=== PATIENT | female | born 1990 | race Two or more races ===

== ENCOUNTER 2024-11-23 21:26 | Emergency (ER) | payer MEDICAID, SELFPAY ==
[2024-11-23 21:29] VITALS: BMI 37.1
[2024-11-23 21:37] VITALS: BP 111/69; PULSE 93; RESP 18; TEMP 36.6; O2SAT 98
--- NOTE | 2024-11-23 22:16 | XR_ITS ---
Examination: Complete OB ultrasound, less than 14 weeks, transabdominal Date and time of exam: May 26, 2025 1019 hours INDICATIONS: Early by history with fall today Technique: Obstetrical ultrasound images less than 14 weeks performed via transabdominal imaging Findings: A normal shaped single intrauterine gestation is present in the uterus. pole 2.5 cm corresponds to 9 weeks 2 days gestational age Cardiac motion 171 BPM Ultrasonographic survey of visible and placental structures unremarkable. Amniotic fluid volume appears appropriate for this estimated gestational age. Right ovary 3.0 cm arterial flow Left ovary 3.1 cm arterial flow IMPRESSION: Viable intrauterine gestation 9 weeks 2 days No subchorionic hemorrhage.
--- NOTE | 2024-11-23 22:18 | EDNOTE_ITS ---
ED General RME/HPI General Chief complaint: Fall Stated complaint: 9 wks preg fall today cramping Time Seen by Provider: 11/23/24 21:39 Arrival date/time: 11/23/24 21:26 34-year-old female presents to the ED after tripping and falling down 2 steps. She landed on her knees and the palms of her hands. She denies any pain to her knees or hands. She is concerned because she started cramping and is currently 9 weeks . She has not seen an OB or had an ultrasound yet. She denies any vaginal bleeding. She is also requesting to have a sebaceous cyst removed from the right side of her neck that has been present for 2 years. She has squeezed it multiple times and white foul-smelling discharge is expelled. She has had previous sebaceous cysts that have abscess and is wanting to have it removed. She denies any fever or chills, nausea or vomiting, diarrhea. Limitations: no limitations Related Data Home Medications ?Medication ?Instructions ?Recorded ?Confirmed prenat.vits,morelia,[id number] 1 tab PO 5 TIMES DAILY 01/02/24 01/02/24 Allergies Allergy/AdvReac Type Severity Reaction Status Date / Time No Known Allergies Allergy Verified 05/22/24 17:27 Review of Systems Review of Systems Systems Reviewed: All systems reviewed, normal except as documented Past Medical History Past Medical History CARDIAC: Negative Cardiac Disorders or Congestive Heart Failure RESPIRATORY: Negative Chronic Obstructive Pulmonary Disease (COPD) or Asthma GENITOURINARY: Negative Renal Disease ENDOCRINE: Negative Diabetes Mellitus Type 1 or Diabetes Mellitus Type 2 HEMATOLOGIC: Negative Sickle Cell Disease Surgical History SURGICAL: Positive Section Social History SMOKING STATUS: Never smoker ED Exam Narrative Physical exam: Alert and oriented 34-year-old female, no acute distress, nontoxic-appearing. Lungs are clear, regular rate and rhythm, moves all extremities well. No tenderness, swelling, ecchymosis or abrasions noted to the bilateral knees or palmar surfaces of her bilateral hands. No snuffbox tenderness bilaterally. No pain with axial thumb load bilaterally. Right neck reveals a soft tissue mass consistent with a sebaceous cyst. There is no erythema, warmth, or tenderness. Neck is supple, no adenopathy, normal range of motion. Abdomen is soft and nontender. General Limitations: Present no limitations General appearance: Present alert and in no apparent distress Course Course Course Narrative: Urinalysis reveals clear colorless urine with a specific gravity of 1.010 with negative nitrites, negative leukocyte Esterace, no bacteria. OB ultrasound less than 14 weeks reveals: A normal shaped single intrauterine gestation is present in the uterus. pole 2.5 cm corresponds to 9 weeks 2 d ays gestational age. Cardiac motion 171 BPM. Ultrasonographic survey of visible and placental structures unremarkable. Amniotic fluid volume appears appropriate for this estimated gestational age. Right ovary 3.0 cm arterial flow. Left ovary 3.1 cm arterial flow. Quality Measures none Orders Category Date Time Status US OB <= 14 weeks fetus Stat Exams 11/23/24 22:16 Completed Urinalysis Stat Lab 11/23/24 22:21 Completed Vital Signs Vital signs: Vital Signs Temperature 97.9 F 11/23/24 21:37 Pulse Rate 93 11/23/24 21:37 Respiratory Rate 18 11/23/24 21:37 Blood Pressure 111/69 11/23/24 21:37 Pulse Oximetry (%) 98 11/23/24 21:37 Oxygen Delivery Method Room Air 11/23/24 21:37 Discharge Plan Plan Patient Disposition: HOME (Self Care) Discharge Disposition comment: Stable and improved Prescriptions/Referrals Prescriptions/Med Rec: No Action Vitamin Tablet 1 tab PO 5 TIMES DAILY Referrals: Lyle Vázquez MD [Primary Care Provider] - In 1 week Problem List Clinical Impression: Fall (on) (from) other stairs and steps, initial encounter, Intrauterine , Sebaceous cyst Patient/Caregiver Discharge Instructions Education Materials: First Trimester, ED Fall with Uncertain Cause, ED Epidermoid Cyst, No Infection Additional Instructions: Follow-up with your traffic or system dispatcher AND primary care physician in 24 to 48 hours. Return to the ED for any new or worsening symptoms. Print Language: Lithuanian Stand Alone Forms: Goalbook Award Info., Patient Portal Info Letter PA/CONFIGURATION MANAGER Supervising Physician PA/DARREL Supervising Physician: Dr Krystyna STEVENSON Narrative [facility] hospital course (for use when minimal MDM required): 34-year-old female presents to the ED after tripping and falling down 2 steps. She landed on her knees and the palms of her hands. She denies any pain to her knees or hands. She is concerned because she started cramping and is currently 9 weeks . She has not seen an OB or had an ultrasound yet. She denies any vaginal bleeding. She is also requesting to have a sebaceous cyst removed from the right side of her neck that has been present for 2 years. She has squeezed it multiple times and white foul-smelling discharge is expelled. She has had previous sebaceous cysts that have abscess and is wanting to have it removed. She denies any fever or chills, nausea or vomiting, diarrhea. Alert and oriented 34-year-old female, no acute distress, nontoxic-appearing. Lungs are clear, regular rate and rhythm, moves all extremities well. No tenderness, swelling, ecchymosis or abrasions noted to the bilateral knees or palmar surfaces of her bilateral hands. No snuffbox tenderness bilaterally. No pain with axial thumb load bilaterally. Right neck reveals a soft tissue mass consistent with a sebaceous cyst. There is no erythema, warmth, or tenderness. Neck is supple, no adenopathy, normal range of motion. Abdomen is soft and nontender. Urinalysis reveals clear colorless urine with a specific gravity of 1.010 with negative nitrites, negative leukocyte Esterace, no bacteria. OB ultrasound less than 14 weeks reveals: A normal shaped single intrauterine gestation is present in the uterus. pole 2.5 cm corresponds to 9 weeks 2 days gestational age. Cardiac motion 171 BPM. Ultrasonographic survey of visible and placental structures unremarkable. Amniotic fluid volume appears appropriate for this estimated gestational age. Right ovary 3.0 cm arterial flow. Left ovary 3.1 cm arterial flow. Advised patient she will need to follow-up with her primary care physician for referral to a corporate real estate specialist for elective removal of the sebaceous cyst. Clinical Information Provided by: patient Medical Records reviewed [facility] Meds/Rx considered, not ordered None Labs/Rad/Tests considered, not ordered None Chronic Illness/Social Conditions which may negatively complicate care or outcome(s)-explain: None or not applicable EKG EKG not done Labs Labs: Interpreted by oh Lab(s) Interpretation(s): As noted above Imaging Imaging interpretation: none or see narrative above Imaging Interpretation(s): As noted above Medication Administration(s) none N/A Diagnosis Differential Diagnosis ED Complaint MDM: Fall, sebaceous cyst, pelvic cramping during .
[2024-11-23 23:26] LABS: Collection Type, Urine Clean Catch
[2024-11-23 23:36] LABS: Bilirubin,Urine Negative (Negative); Blood,Urine Negative (Negative); Clarity,Urine Clear (Clear/Hazy); Color,Urine Colorless (Lt Yel-Yel); Glucose, Urine Negative (Negative); Ketones,Urine Negative (Negative); Leukocyte Esterase,Urine Negative (Negative); Nitrite,Urine Negative (Negative); PH,Urine 6.5 (5.0-7.0); Protein,Urine Negative (Neg - Trace); RBC,Urine < 1 /hpf (0-3); Squamous Epithelial Cell,Urine 1 /hpf (0-5); Urobilinogen,Urine Negative mg/dL (0.0-1.0); WBC,Urine < 1 /hpf (0-5)
== END 2024-11-24 00:19 | disposition home or self-care (01) ==
PROVIDERS: Physician Assistant; Emergency Provider Emergency Medicine; PCP Family Medicine
DX: O99.711 Diseases of the skin and subcutaneous tissue complicating pregnancy, first trimester (principal); L72.3 Sebaceous cyst; W10.8XXA Fall (on) (from) other stairs and steps, initial encounter; Z3A.09 9 weeks gestation of pregnancy
CPT/HCPCS: 76801; 81001; 99284

== ENCOUNTER 2025-02-11 18:01 | Emergency (ER) | payer MEDICAID, SELFPAY ==
[2025-02-11 18:11] VITALS: BP 110/75; PULSE 92; RESP 18; TEMP 36.9; O2SAT 96
--- NOTE | 2025-02-11 18:55 | PD.EDSKIN ---
ED Skin Abcess FB-RME/HPI General Chief complaint: Ankle/Foot Injury Stated complaint: R) GREAT TOENAIL LIFTED FROM NAIL BED Time Seen by Provider: 02/11/25 18:39 Arrival date/time: 02/11/25 18:01 34F with no significant PMH presents to ED with R big toenail avulsion. Patient is also currently . Limitations: no limitations Related Data Home Medications ?Medication ?Instructions ?Recorded ?Confirmed prenat.vits,morelia,[id number] 1 tab PO 5 TIMES DAILY 01/02/24 01/02/24 Allergies Allergy/AdvReac Type Severity Reaction Status Date / Time No Known Allergies Allergy Verified 02/11/25 18:05 Review of Systems Review of Systems Systems Reviewed: All systems reviewed, normal except as documented Constitutional Constitutional: Reports system reviewed and no additional complaints, except as documented, Denies fever(s) and Denies headache(s) ENT Ears, Nose, Mouth, and Throat: Denies disequilibrium and Denies headache(s) Cardiovascular Cardiovascular: Reports system reviewed and no additional complaints, except as documented, Denies chest pain and Denies dyspnea Respiratory Respiratory: Reports system reviewed and no additional complaints, except as documented, Denies cough and Denies dyspnea Gastrointestinal Gastrointestinal: Reports system reviewed and no additional complaints, except as documented, Denies abdominal pain, Denies nausea and Denies vomiting Integumentary/Breasts Skin/Breast: Reports as per HPI and Reports skin pain Neurologic Neurologic: Reports system reviewed and no additional complaints, except as documented, Denies confusion, Denies disequilibrium and Denies headache(s) Psychiatric Psychiatric: Denies confusion Past Medical History Past Medical History CARDIAC: Negative Cardiac Disorders or Congestive Heart Failure RESPIRATORY: Negative Chronic Obstructive Pulmonary Disease (COPD) or Asthma GENITOURINARY: Negative Renal Disease ENDOCRINE: Negative Diabetes Mellitus Type 1 or Diabetes Mellitus Type 2 HEMATOLOGIC: Negative Sickle Cell Disease Surgical History SURGICAL: Positive Section Social History SMOKING STATUS: Never smoker ED Exam General Limitations: Present no limitations General appearance: Present alert and in no apparent distress Head Head exam: Present atraumatic Eye Eye exam: Present normal appearance, PERRL and EOMI ENT ENT exam: Present normal exam, normal oropharynx and mucous membranes moist Neck Neck exam: Present normal inspection, full ROM and trachea midline Chest Chest inspection: Present normal inspection and symmetric chest wall rise Respiratory Respiratory exam: Present normal lung sounds bilaterally Cardiovascular Cardiovascular exam: Present regular rate, normal rhythm and normal heart sounds Abdominal Exam Abdominal exam: Present soft and normal bowel sounds Extremities Exam Extremities exam: Present full ROM Expanded Lower Extremity Exam Foot/toe exam: Present full ROM and nail avulsion (R big toe partial) Back Exam Back exam: Present normal inspection and full ROM Neurological Exam Neurological exam: Present alert, oriented X3 and CN II-XII intact Psychiatric Psychiatric exam: Present normal affect and normal mood Skin Skin exam: Present warm, dry, intact and normal color Course Quality Measures none Orders Category Date Time Status Wound Care NOW Care 02/11/25 18:39 Active Vital Signs Vital signs: Vital Signs Temperature 98.5 F 02/11/25 18:11 Pulse Rate 92 02/11/25 18:11 Respiratory Rate 18 02/11/25 18:11 Blood Pressure 110/75 02/11/25 18:11 Pulse Oximetry (%) 96 02/11/25 18:11 Oxygen Delivery Method Room Air 02/11/25 18:11 O2 at 96% on RA and WNLs Skin / Abscess / Foreign Body MDM Narrative MDM Narrative:: 34F with no significant PMH presents to ED with R big toenail avulsion. Patient is also currently . Physical exam reveals partial R big toenail avulsion. Patient is afebrile, calm, and alert. Toenail trimmed and bandaged with michael tape. Patient data External records reviewed:: [facility] previous records Clinical information provided by:: patient Social determinants that could affect healthcare access:: none Patient has the following chronic illnesses:: none How is presenting disease/condition affected by chronic disease/condition?: no chronic disease Evaluation data The following diagnostics were reviewed and interpreted by me:: other (specify) (none) Lab and/or radiology exams considered but not ordered:: not ordered Interpretation Summary: n/a Medications / Prescriptions Medications or Prescriptions considered but not ordered:: not ordered Medication administrations:: n/a Consultations Consultation(s) initiated? (list below): No Diagnosis Skin/Abscess Differential Diagnosis: abscess of skin or subcutaneous tissue, viral exanthem, dermatophytosis, urticaria, herpes zoster, allergic reaction to drug, cellulitis, eczema, insect bites, impetigo, contact dermatitis and other (toenail avulsion) Most likely diagnosis given after review of the tests above:: toenail avulsion Admission Indicated Admission indicated?: not indicated Admission Request Was there a request for admission?: No Disposition Plan Disposition Plan: Discharge Discharge Attestation Discharge Attestation: The patient and all family members were given an opportunity to ask questions and understood the discharge instructions. Discharge instructions specifically effects, indications for sooner follow up or return to the emergency department, and the expected course of current diagnosis. Patient condition: Stable Discharge Plan Plan Patient Disposition: HOME (Self Care) Discharge Disposition comment: Stable Prescriptions/Referrals Prescriptions/Med Rec: No Action Vitamin Tablet 1 tab PO 5 TIMES DAILY Problem List Clinical Impression: Avulsion of toenail Patient/Caregiver Discharge Instructions Education Materials: ED Detached Fingernail or Toenail Additional Instructions: Please follow-up with PCP within 24-48 hours and return immediately if symptoms worsen. Print Language: Ecuadorean Stand Alone Forms: Patient Portal Info Letter MECCA/DARREL Supervising Physician MECCA/DARREL Supervising Physician: Dr. Carrington
== END 2025-02-11 19:00 | disposition home or self-care (01) ==
LOC: SERX 18:54
PROVIDERS: Emergency Provider Emergency Medicine; PCP Family Medicine
DX: O9A.219 Injury, poisoning and certain other consequences of external causes complicating pregnancy, unspecified trimester (principal); S91.209A Unspecified open wound of unspecified toe(s) with damage to nail, initial encounter; X58.XXXA Exposure to other specified factors, initial encounter
CPT/HCPCS: 99283

== ENCOUNTER 2025-05-25 22:43 | Observation (INO) | payer MEDICAID, SELFPAY ==
[2025-05-25 23:09] VITALS: BP 106/62; PULSE 97; RESP 17; RESP 97; TEMP 36.9
[2025-05-25 23:22] VITALS: BMI 43.7
[2025-05-25 23:26] LABS: ROM Kit Exp Date# 04/11/28; ROM Kit Lot # 58106258
[2025-05-25 23:27] LABS: ROM Swab Mixed By: PC; Rupture of Fetal Membranes Negative (Negative); Swb Mxed in Solvent 1 min? Yes
== END 2025-05-25 23:59 | disposition home or self-care (01) ==
PROVIDERS: Admitting Provider Obstetrics & Gynecology; PCP Family Medicine; Visit Provider Obstetrics & Gynecology
DX: O99.353 Diseases of the nervous system complicating pregnancy, third trimester (principal); G43.909 Migraine, unspecified, not intractable, without status migrainosus; O26.893 Other specified pregnancy related conditions, third trimester; R10.20 Pelvic and perineal pain unspecified side; Z3A.35 35 weeks gestation of pregnancy
CPT/HCPCS: 59025; 59899; 84112

== ENCOUNTER 2025-07-10 15:24 | Emergency (ER) | payer MEDICAID, SELFPAY ==
[2025-07-10 15:25] VITALS: BMI 35.5
[2025-07-10 15:50] VITALS: BP 106/69; PULSE 59; RESP 20; TEMP 36.8; O2SAT 97
--- NOTE | 2025-07-10 16:25 | PD.EDSKIN ---
ED Skin Abcess FB-RME/HPI General Chief complaint: Skin/Abscess/Foreign Body Stated complaint: R NECK CYST; POSSIBLY INFECTED Time Seen by Provider: 07/10/25 16:02 Source: patient Arrival date/time: 07/10/25 15:24 34-year-old female with no known medical history presents to the emergency room with a chief complaint of a cyst to the right side of her neck x 1 year Mode of arrival: ambulatory Limitations: no limitations Related Data Home Medications ?Medication ?Instructions ?Recorded ?Confirmed prenat.vits,morelia,[id number] 1 tab PO 5 TIMES DAILY 01/02/24 05/25/25 acetaminophen 1,000 mg PO PRN PRN PAIN 05/25/25 05/25/25 Previous Rx's ?Medication ?Instructions ?Recorded cephalexin 500 mg capsule 500 mg PO BID 7 days #14 caps 07/10/25 Allergies Allergy/AdvReac Type Severity Reaction Status Date / Time No Known Allergies Allergy Verified 07/10/25 15:27 Review of Systems Review of Systems Systems Reviewed: All systems reviewed, normal except as documented Constitutional Constitutional: Reports system reviewed and no additional complaints, except as documented, Denies fatigue, Denies fever(s), Denies headache(s) and Denies weakness Eyes Eyes: Reports system reviewed and no additional complaints, except as documented, Denies blurry vision and Denies change in vision ENT Ears, Nose, Mouth, and Throat: Reports system reviewed and no additional complaints, except as documented, Denies otalgia, Denies headache(s), Denies nasal congestion, Denies throat swelling and Denies vertigo Cardiovascular Cardiovascular: Reports system reviewed and no additional complaints, except as documented, Denies chest pain, Denies dyspnea and Denies dyspnea on exertion Respiratory Respiratory: Reports system reviewed and no additional complaints, except as documented, Denies chest congestion, Denies cough, Denies dyspnea, Denies dyspnea on exertion and Denies wheezing Gastrointestinal Gastrointestinal: Reports system reviewed and no additional complaints, except as documented, Denies abdominal pain, Denies cramping, Denies nausea and Denies vomiting Genitourinary Genitourinary: Reports system reviewed and no additional complaints, except as documented Musculoskeletal Musculoskeletal: Reports system reviewed and no additional complaints, except as documented and Denies back pain Integumentary/Breasts Skin/Breast: Reports system reviewed and no additional complaints, except as documented, Reports erythema, Reports furuncle and Reports wounds Neurologic Neurologic: Reports system reviewed and no additional complaints, except as documented, Denies confusion, Denies headache(s), Denies lack of coordination, Denies vertigo and Denies weakness Psychiatric Psychiatric: Reports system reviewed and no additional complaints, except as documented, Denies anxiety, Denies confusion, Denies depression, Denies paranoia, Denies suicidal ideation and Denies tactile hallucinations Endocrine Endocrine: Reports system reviewed and no additional complaints, except as documented and Denies fatigue Hematologic/Lymphatic Hematologic/Lymphatic: Reports system reviewed and no additional complaints, except as documented and Denies lymphadenopathy Allergic/Immunologic Allergic/Immunologic: Reports system reviewed and no additional complaints, except as documented, Denies throat swelling, Denies urticaria and Denies wheezing ED Exam General Limitations: Present no limitations General appearance: Present alert and in no apparent distress Head Head exam: Present atraumatic Eye Eye exam: Present normal appearance, PERRL and EOMI ENT ENT exam: Present normal exam, normal oropharynx and mucous membranes moist Neck Neck exam: Present normal inspection, full ROM and trachea midline Expanded Neck Exam Neck exam focused ED: Absent paraspinal tenderness, tenderness (other), tracheal deviation, anterior neck swelling, thyroid enlargement, JVD or carotid bruit Neck image:  1. 4 cm abscess to the right side of her neck. Chest Chest inspection: Present normal inspection and symmetric chest wall rise Respiratory Respiratory exam: Present normal lung sounds bilaterally Cardiovascular Cardiovascular exam: Present regular rate, normal rhythm and normal heart sounds Abdominal Exam Abdominal exam: Present soft and normal bowel sounds Extremities Exam Extremities exam: Present normal inspection and full ROM Back Exam Back exam: Present normal inspection and full ROM Neurological Exam Neurological exam: Present alert, oriented X3 and CN II-XII intact Psychiatric Psychiatric exam: Present normal affect and normal mood Skin Skin exam: Present warm, dry, intact and normal color Course Quality Measures none Orders Category Date Time Status Set Up Suture Tray STAT Care 07/10/25 16:03 Completed Wound Care NOW Care 07/10/25 16:03 Completed Ibuprofen Tab [Motrin Tab] Med 07/10/25 16:35 Discontinued 800 mg PO X1 ONE Lidocaine 1% Vial 20 ml [Xylocaine 1% 20 ML] Med 07/10/25 16:03 Discontinued 20 ml INFL X1 ONE Vital Signs Vital signs: Vital Signs Temperature 98.3 F 07/10/25 15:50 Pulse Rate 59 L 07/10/25 15:50 Respiratory Rate 20 07/10/25 15:50 Blood Pressure 106/69 07/10/25 15:50 Pulse Oximetry (%) 97 07/10/25 15:50 Oxygen Delivery Method Room Air 07/10/25 15:50 PROCEDURES: Abscess I/D Site: neck Side (if applicable): right Local Anesthetic: lidocaine 1% Amount of anesthesia used (mL): 3 Technique: incised with #11 blade Amount of fluid expressed (mL): 5 Irrigation: Yes Packing used?: none Skin / Abscess / Foreign Body MDM Narrative MDM Narrative:: 34-year-old female with no known medical history presents to the emergency room with a chief complaint of a cyst to the right side of her neck x 1 year Patient is hemodynamically stable and in no apparent distress. Patient is afebrile nontachycardic nontachypneic. Patient has a 4 cm abscess to the right side of her neck. PROCEDURE: incision and drainage of abscess PROCEDURE: A timeout protocol was performed prior to initiating the procedure. The area was prepared with Betadine and draped in the usual, sterile manner. The site was anesthetized with 1% lidocaine. A linear incision along the local skin lines was made and the purulent material expressed. The abscess was explored thoroughly and sequestered pockets were opened. Bleeding was minimal. Packing: none Followup: The patient tolerated the procedure well without complications. Standard post-procedure care is explained and patient was educated to follow-up with his primary care provider in the next 24 to 48 hours or return to the emergency room for any evidence of worsening signs or symptoms. Patient data External records reviewed:: [facility] previous records Clinical information provided by:: patient Social determinants that could affect healthcare access:: none Patient has the following chronic illnesses:: No chronic illness How is presenting disease/condition affected by chronic disease/condition?: no chronic disease Evaluation data The following diagnostics were reviewed and interpreted by me:: lab results and radiology exam(s) Lab and/or radiology exams considered but not ordered:: Labs radiology exams considered and ordered Interpretation Summary: N/A Medications / Prescriptions Medications or Prescriptions considered but not ordered:: Medication given Medication administrations:: Medication Administration History Discontinued Medications Ibuprofen (Ibuprofen Tab 400 Mg Tablet) 800 mg PO X1 ONE Stop: 07/10/25 16:36 Last Admin: 07/10/25 16:39 Dose: 800 mg Documented By: Lidocaine HCl (Lidocaine Hcl 1% 20 Ml Vial) 20 ml INFL X1 ONE Stop: 07/10/25 16:04 Last Admin: 07/10/25 16:33 Dose: 20 ml Documented By: Medication given Consultations Consultation(s) initiated? (list below): No Diagnosis Skin/Abscess Differential Diagnosis: abscess of skin or subcutaneous tissue, cellulitis and other (Abscess of skin or subcutaneous tissue) Most likely diagnosis given after review of the tests above:: Abscess of skin and subcutaneous tissue Admission Indicated Admission indicated?: not indicated Admission Request Was there a request for admission?: No Disposition Plan Disposition Plan: Discharge Discharge Attestation Discharge Attestation: The patient and all family members were given an opportunity to ask questions and understood the discharge instructions. Discharge instructions specifically effects, indications for sooner follow up or return to the emergency department, and the expected course of current diagnosis. Patient condition: Stable Discharge Plan Plan Patient Disposition: HOME (Self Care) Discharge Disposition comment: Stable Prescriptions/Referrals Prescriptions/Med Rec: New cephalexin 500 mg capsule 500 mg PO BID 7 Days Qty: 14 0RF No Action Vitamin Tablet 1 tab PO 5 TIMES DAILY acetaminophen [Tylenol Extra Strength] 1,000 mg PO PRN PRN (Reason: PAIN) Problem List Clinical Impression: Abscess of skin or subcutaneous tissue Patient/Caregiver Discharge Instructions Education Materials: Abscess Drainage, ED Abscess, Incision And Drainage Additional Instructions: Please follow-up with your primary care provider in the next 24 to 48 hours Abscess on your neck was drained. Antibiotics sent to your pharmacy please pick them up and take them as indicated For any evidence of worsening signs or symptoms return to the emergency room immediately Print Language: Greenlandic Stand Alone Forms: Sherrie Award Info., Work/School Release, Patient Portal Info Letter MECCA/DARREL Supervising Physician MECCA/DARREL Supervising Physician: Dr. Amin
[2025-07-10] MEDS: LIDOCAINE HCL 1% 20 ML VIAL INFL (16:33)
[2025-07-10] MEDS: IBUPROFEN TAB 400 MG TABLET 800 MG PO (16:39)
== END 2025-07-10 16:57 | disposition home or self-care (01) ==
LOC: SERX 16:49
PROVIDERS: Emergency Provider Emergency Medicine; PCP Family Medicine
DX: L02.11 Cutaneous abscess of neck (principal)
CPT/HCPCS: 10060; 99282; J3490; A9270

== ENCOUNTER 2025-07-15 01:26 | Emergency (ER) | payer MEDICAID, SELFPAY ==
[2025-07-15 01:26] VITALS: BMI 35.5
[2025-07-15 01:38] VITALS: BP 124/77; PULSE 68; RESP 16; TEMP 36.8; O2SAT 97
--- NOTE | 2025-07-15 01:39 | PD.EDRME ---
Rapid Medical Screening Exam RME Arrival date/time: 07/15/25 01:26 34F with no significant PMH presents to ED with 1 week of R neck pain abscess. Patient was here several days ago where I&D was done and patient was discharged on Keflex. Patient state swelling/pain came back. Chief Complaint: Skin/Abscess/Foreign Body Vital signs: Vital Signs Temperature 98.3 F 07/15/25 01:38 Pulse Rate 68 07/15/25 01:38 Respiratory Rate 16 07/15/25 01:38 Blood Pressure 124/77 07/15/25 01:38 Pulse Oximetry (%) 97 07/15/25 01:38 Oxygen Delivery Method Room Air 07/15/25 01:38 Exam: R neck abscess Clinical Impression: Skin abscess vs cellulitis vs reactive lymphadenopathy
--- NOTE | 2025-07-15 02:22 | PD.EDSKIN ---
ED Skin Abcess FB-RME/HPI General Chief complaint: Skin/Abscess/Foreign Body Stated complaint: ABSCESS TO NECK Time Seen by Provider: 07/15/25 01:41 Arrival date/time: 07/15/25 01:26 RME / HPI RME / HPI narrative: 07/15/25 01:26 34F with no significant PMH presents to ED with 1 week of R neck pain abscess. Patient was here several days ago where I&D was done and patient was discharged on Keflex. Patient state swelling/pain came back. Dr. Kothari?s Main ED Evaluation: 34yo female presents to the ED for recurrent right neck abscess. Patient was seen here several days ago for the same complaint, had an I&D done, and was discharged home on Keflex. Patient states she started having returning right-sided neck pain and noticed the site was starting to swell up again, so she came back in for further evaluation. Patient denies any difficulty swallowing, fever, chills, or any other associated symptoms. NKA. Related Data Home Medications ?Medication ?Instructions ?Recorded ?Confirmed prenat.vits,morelia,[id number] 1 tab PO 5 TIMES DAILY 01/02/24 05/25/25 acetaminophen 1,000 mg PO PRN PRN PAIN 05/25/25 05/25/25 Previous Rx's ?Medication ?Instructions ?Recorded cephalexin 500 mg capsule 500 mg PO BID 7 days #14 caps 07/10/25 doxycycline hyclate 100 mg tablet 100 mg PO BID 7 days #14 tabs 07/15/25 Allergies Allergy/AdvReac Type Severity Reaction Status Date / Time No Known Allergies Allergy Verified 07/15/25 01:29 Review of Systems Review of Systems Systems Reviewed: All systems reviewed, normal except as documented Past Medical History Past Medical History CARDIAC: Negative Cardiac Disorders or Congestive Heart Failure RESPIRATORY: Negative Chronic Obstructive Pulmonary Disease (COPD) or Asthma GENITOURINARY: Negative Renal Disease ENDOCRINE: Negative Diabetes Mellitus Type 1 or Diabetes Mellitus Type 2 HEMATOLOGIC: Negative Sickle Cell Disease Surgical History SURGICAL: Positive Section Social History SMOKING STATUS: Never smoker ED Exam Narrative Physical exam: Generally patient is alert and in no obvious distress, neck shows a 4 x 4 circular fluctuant region to the mid right neck. No overlying erythema or tenderness., Heart regular rate and rhythm, lungs clear to auscultation equal bilaterally, abdomen soft nondistended nontender, neurologic exam shows no focal motor deficits with Carlitos Coma Scale 15 Course Quality Measures none Orders Category Date Time Status Incision and Drainage Set Up X1 Care 07/15/25 01:39 Active Lidocaine 1% Vial 20 ml [Xylocaine 1% 20 ML] Med 07/15/25 02:29 Discontinued 10 ml INFL X1 ONE Vital Signs Vital signs: Vital Signs Temperature 98.3 F 07/15/25 01:38 Pulse Rate 68 07/15/25 01:38 Respiratory Rate 16 07/15/25 01:38 Blood Pressure 124/77 07/15/25 01:38 Pulse Oximetry (%) 97 07/15/25 01:38 Oxygen Delivery Method Room Air 07/15/25 01:38 Skin / Abscess / Foreign Body MDM Narrative MDM Narrative:: Scribe Attestation: 07/15/25 - Suzanne Maza am scribing for and in the presence of Dr. Kothari. After consent was obtained the wound was anesthetized with 1% lidocaine without epinephrine. This was anesthetized over the most fluctuant point. The wound was then incised using an 11 blade scalpel and a 1 cm wound was introduced with foul-smelling exudate in return. Exudate was expressed from the wounds and loculations were broken up using blunt dissection. The wound was then irrigated and packed with 1/4 inch iodoform gauze and sterilely dressed. Patient tolerated the procedure well. Patient is only on cephalexin. For MRSA coverage I will start the patient on doxycycline. She is to return in 2 days for packing removal and wound inspection. Patient data External records reviewed:: [facility] previous records (Per chart review, patient was seen here on 07/10/25 for abscess of skin or subcutaneous tissue.) Clinical information provided by:: patient Social determinants that could affect healthcare access:: none Patient has the following chronic illnesses:: none How is presenting disease/condition affected by chronic disease/condition?: no chronic disease Evaluation data The following diagnostics were reviewed and interpreted by me:: other (specify) (none) Lab and/or radiology exams considered but not ordered:: none Interpretation Summary: none Medications / Prescriptions Medications or Prescriptions considered but not ordered:: none Medication administrations:: Medication Administration History Discontinued Medications Lidocaine HCl (Lidocaine Hcl 1% 20 Ml Vial) 10 ml INFL X1 ONE Stop: 07/15/25 02:30 Last Admin: 07/15/25 02:53 Dose: 10 ml Documented By: ARLENE Comments: ADMIN BY PROVIDER see above, if any Consultations Consultation(s) initiated? (list below): No Diagnosis Skin/Abscess Differential Diagnosis: other (See MDM) Most likely diagnosis given after review of the tests above:: see clinical impression below Admission Indicated Admission indicated?: not indicated Admission Request Was there a request for admission?: No Disposition Plan Disposition Plan: Discharge Discharge Attestation Discharge Attestation: The patient and all family members were given an opportunity to ask questions and understood the discharge instructions. Discharge instructions specifically effects, indications for sooner follow up or return to the emergency department, and the expected course of current diagnosis. Patient condition: Stable Discharge Plan Plan Patient Disposition: HOME (Self Care) Prescriptions/Referrals Prescriptions/Med Rec: New doxycycline hyclate 100 mg tablet 100 mg PO BID 7 Days Qty: 14 0RF No Action Vitamin Tablet 1 tab PO 5 TIMES DAILY acetaminophen [Tylenol Extra Strength] 1,000 mg PO PRN PRN (Reason: PAIN) cephalexin 500 mg capsule 500 mg PO BID 7 Days Qty: 14 0RF Referrals: Lyle Vázquez MD [Primary Care Provider, Family Practice] - In 1 week Problem List Clinical Impression: Abscess, Encounter for incision and drainage procedure Patient/Caregiver Discharge Instructions Education Materials: Abscess Drainage Additional Instructions: Continue current antibiotic. Doxycycline as prescribed. Return to ER in 2 days for packing removal and wound check. Keep her follow-up appointment with your ob/gyn. Keep the dressing on clean and dry. Print Language: Emirati Stand Alone Forms: Sherrie Award Info., Patient Portal Info Letter
[2025-07-15] MEDS: LIDOCAINE HCL 1% 20 ML VIAL 10 ML INFL (02:53)
== END 2025-07-15 03:37 | disposition home or self-care (01) ==
PROVIDERS: Emergency Provider Emergency Medicine; PCP Family Medicine
DX: L02.11 Cutaneous abscess of neck (principal)
CPT/HCPCS: 10060; 99281; J3490